=== PATIENT | female | born 1945 | race Caucasian/White ===

== ENCOUNTER 2021-02-13 19:22 | Emergency (ER) | payer OTHER, MEDICARE ==
[~2021-02-13] VITALS: Ht 172.7 cm; Wt 136.1 kg
[~2021-02-13 19:22] MED LIST: CADUET; CITALOPRAM; LISINOPRIL; VICODIN
[2021-02-13 19:40] VITALS: BP_SYST 146
--- NOTE | 2021-02-13 19:40 | NUR ---
Patient AAOx4 BIB wheelchair for worsening abdominal pain x1 week. Patient stated she believes it is a hernia. Patient has taken percocet 10-325 BID for the pain. Patient also stated having nausea, no vomiting, no SOB or chest pain. Vital signs are stable.
--- NOTE | 2021-02-13 19:40 | NUR ---
Patient to ER bed 3 to gown for evaluation. Side rails up.
--- NOTE | 2021-02-13 19:44 | NUR ---
Dr. Mcgee at bedside for evaluation.
--- NOTE | 2021-02-13 20:00 | NUR ---
Urine collected and sent to lab for analysis.
--- NOTE | 2021-02-13 20:11 | NUR ---
[employer] at bedside to draw blood specimen.
[2021-02-13 20:28] LABS: BASOPHILS # (AUTO) 0.1 K/uL (0.0-0.2); BASOPHILS % (AUTO) 0.9 % (0.0-2.0); EOSINOPHILS # (AUTO) 0.3 K/uL (0.0-0.4); EOSINOPHILS % (AUTO) 4.2 % (0.0-4.0); HEMATOCRIT 33.7 % (36-48); HEMOGLOBIN 11.2 g/dL (12.0-16.0); LYMPHOCYTES # (AUTO) 0.9 K/uL (1.0-5.5); LYMPHOCYTES % (AUTO) 11.9 % (20.5-51.5); MEAN CORPUSCULAR HEMOGLOBIN 30 pg (27-31); MEAN CORPUSCULAR HGB CONC 33 % (32-36); MEAN CORPUSCULAR VOLUME 89 fL (79.0-98.0); MONOCYTES # (AUTO) 0.5 K/uL (0.0-1.0); MONOCYTES % (AUTO) 6.9 % (1.7-9.3); NEUTROPHILS % (AUTO) 76.1 % (40.0-70.0); PLATELET COUNT (AUTO) 313 K/uL (130-430); RED BLOOD CELL COUNT(AUTO) 3.79 MIL/uL (4.2-6.2); RED CELL DISTRIBUTION WIDTH 16.7 % (9.0-15.0); WHITE BLOOD COUNT (AUTO) 7.9 K/uL (4.8-10.8)
--- NOTE | 2021-02-13 20:30 | NUR ---
Patient taken to CT scan by radiology staff and RN via [facility].
[2021-02-13 20:39] LABS: ANION GAP 4 (5-15); CHLORIDE 105 mmol/L (98-107); CREATININE 1.35 mg/dL (0.55-1.30); GLUCOSE 92 mg/dL (70-99); POTASSIUM 3.7 mmol/L (3.5-5.1); SODIUM SERUM 140 mmol/L (136-145); UREA NITROGEN, BLOOD 18 mg/dL (8-21)
--- NOTE | 2021-02-13 20:48 | NUR ---
Patient returned from CT scan via [facility] with radiology and RN.
[2021-02-13 20:49] LABS: C-REACTIVE PROTEIN QUANT 0.2 mg/dL (0-0.5)
[2021-02-13 20:52] LABS: BILIRUBIN,URINE NEGATIVE (NEGATIVE); COLOR,URINE YELLOW (YELLOW); GLUCOSE,URINE NEGATIVE (NEGATIVE); KETONES,URINE NEGATIVE (NEGATIVE); LEUKOCYTE ESTERASE ,URINE TRACE (NEGATIVE); NITRITE, URINE POSITIVE (NEGATIVE); PROTEIN URINE NEGATIVE (NEGATIVE); UROBILINOGEN,URINE 0.2 (0.2-1.0)
[2021-02-13 20:53] LABS: BLOOD, URINE TRACE (NEGATIVE); CLARITY/URINE HAZY (CLEAR)
[2021-02-13 20:53] LABS: ALANINE AMINOTRANSFERASE 18 U/L (12-78); ALBUMIN 3.4 g/dL (3.4-4.8); AMYLASE 31 U/L (0-100); ASPARTATE AMINOTRANSFERASE 11 U/L (10-37); LACTATE DEHYDROGENASE 154 U/L (81-234); LIPASE 69 U/L (73-393); TOTAL BILIRUBIN 0.5 mg/dL (0.0-1.0)
[2021-02-13 21:19] LABS: PROTHROMBIN TIME 10.1 SECS (9.5-12.5)
[2021-02-13 21:56] LABS: WBC,URINE 20-50 /HPF (0-3)
[2021-02-13 21:57] LABS: BACTERIA,URINE MANY /HPF (None Seen); MUCUS,URINE 1+ /LPF (None Seen); URINE AMORPHOUS URATE 1+ /HPF (None Seen)
[2021-02-13 22:00] VITALS: BP_SYST 146
--- NOTE | 2021-02-13 22:00 | NUR ---
Patient given written and verbal discharge instructions and verbalizes understanding. DR.LEE LIZ THOMPSON discussed with patient the results and treatment provided. Patient in stable condition. ID arm band removed. Patient educated on pain management and to follow up with PMD. Pain Scale 0/10. Opportunity for questions provided and answered. Medication side effect fact sheet provided.
== END 2021-02-13 22:00 | disposition home or self-care (01) ==
LOC: SED 19:22
DX: K43.9 Ventral hernia without obstruction or gangrene (principal); I10 Essential (primary) hypertension; F32.9 Major depressive disorder, single episode, unspecified
CPT/HCPCS: 36415; 76376; 80053; 81000; 82150; 83605; 83615; 83690; 85025; 85610-TC; 85730-TC; 86140; 87086; 99284